=== PATIENT | female | born 1960 | race Caucasian/White ===

== ENCOUNTER 2023-10-14 09:11 | Emergency (ER) | payer BC, SELFPAY ==
[2023-10-14 09:13] VITALS: BP 165/91; PULSE 75; RESP 14; TEMP 36.1; O2SAT 100; BMI 31.1
[2023-10-14 09:28] VITALS: BMI 31.8
--- NOTE | 2023-10-14 09:48 | EDS_ITS ---
HPI History of Present Illness Chief Complaint: Neuro S/Sx Informant: patient and spouse/S.O. Narrative Narrative: 63-year-old female presenting to the emergency room with left facial droop. Patient states that yesterday she noticed itchy watery left eye which she attributed to allergies. She states she was at the dentist was told she looks slightly puffy in the periorbital region so she thought it might be allergies. Last night she started noticing a slight amount of facial droop. By this morning she noticed the facial droop was more pronounced. She denies any rashes. She denies any abnormal sensory or skin findings on the nose or ear. She denies any change in vision. She states she has received 1 shingles vaccination and is due for her another in a few months. She denies any arm or leg symptoms. PFSH PFSH Allergy/AdvReac Type Severity Reaction Status Date / Time No Known Allergies Allergy Verified 10/14/23 09:13 Social History Smoking Status: Never smoker ROS ROS ED Constitutional Constitutional ED: Denies chills, fever(s) or weight loss Eyes Eyes: Denies change in vision or diplopia ENT ENT ED: Denies ear pain, rhinorrhea or sore throat Cardiovascular Cardiovascular: Denies chest pain, orthopnea, palpitations or racing heartbeat Respiratory/Chest Respiratory/Chest: Denies cough, dyspnea or orthopnea Gastrointestinal Gastrointestinal: Denies abdominal pain, diarrhea, nausea or vomiting Genitourinary Genitourinary ED: Denies dysuria, hematuria or urinary frequency Musculoskeletal Musculoskeletal: Denies arthralgias or myalgias Integumentary Denies abscess or rash Neurologic Neurologic: Reports weakness; Denies headache(s) or paresthesias Psychiatric Psychiatric: Denies anxiety, depression, suicidal ideation or suicidal thoughts Endocrine Endocrinology: Denies polydipsia, polyphagia or polyuria Allergic/Immunologic Allergic/Immunologic ED: Denies mouth swelling, tongue swelling or urticaria EXAM Physical Exam Const Vital Signs: 10/14/23 09:13 10/14/23 09:13 Temperature 96.9 F L Temperature Source Temporal Pulse Rate 75 75 Respiratory Rate 14 14 Blood Pressure 165/91 H 165/91 H Blood Pressure Mean 115 115 Pulse Ox 100 100 Oxygen Delivery Method Room Air Room Air Positive well nourished and well developed General Appearance ED: well developed HEENT Reports normocephalic, head/scalp atraumatic and moist mucous membranes Eyes PERRL and EOMs intact bilaterally Neck no lymphadenopathy, supple and no JVD Resp normal respiratory effort and clear to auscultation bilaterally Cardio regular rate, regular rhythm and no murmurs GI normal to inspection, nondistended, normoactive bowel sounds and non-tender Palpation: soft Back/Spine no CVA tenderness and normal ROM Extremity normal to inspection General Extremety ED: Negative for edema General Extremity: Negative for edema Neuro oriented x3 Neuro Narrative: Patient has inability to close the left eye, inability to wrinkle left forehead, facial droop. She notes no change in sensation of the face. There are no skin lesions or ocular lesions (with staining) to suggest zoster. There is tearing of the left eye. The tongue appears normal. Ear canal appears normal. Scalp appears normal. Arms and legs appear normal. Sensorium / Orientation: alert Sensory Exam: No sensory level loss detected Motor Exam: strength 5/5 throughout Psych mental status grossly normal Mood & Affect: Negative for depressed or tearful Skin no rashes or lesions noted and no wounds MDM MDM MDM Narrative Medical decision making narrative: Differential diagnosis includes but not limited to Renteria's palsy, stroke, intracranial hemorrhage, peripheral nerve trauma. 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 She will be started on prednisone and valacyclovir. Patient will tape her eye shut at night. She will use artificial tears. She is advised that there is always a risk that she may not have full resolution. She understands the importance of following up with primary care and possibly ophthalmology should she do have concerns or any new features of the eye. History & Record Review Discussion w/independent historian: Patient and Significant other Discharge Plan Triage Chief Complaint: Neuro S/Sx ED Provider: Chester Dhaliwal Dx/Rx/DC Orders Primary Care Provider: Aura Garland Referrals: Aura Garland MD [Primary Care Provider] - Print Language: Amharic
[2023-10-14 10:08] VITALS: BP 153/83; PULSE 67; RESP 15; TEMP 36.7; O2SAT 99
== END 2023-10-14 10:10 | disposition home or self-care (01) ==
LOC: ED 10:04
PROVIDERS: Emergency Provider Emergency Medicine; PCP Internal Medicine; Visit Provider Emergency Medicine
DX: R29.810 Facial weakness (principal)
CPT/HCPCS: 99282